=== PATIENT | male | born 1990 | race Caucasian/White ===

== ENCOUNTER 2025-04-12 12:49 | Outpatient (AMB) | payer BC, SELFPAY ==
--- NOTE | 2025-04-12 12:53 | MHC.PC.OV ---
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 Accompanied by: Self / Same As Patient Allergies No Known Allergies Allergy (Verified 04/12/25 12:54) Medication List - Last Reconciled 04/12/25 by Nicolette Mahan MD No Known Home Meds Tobacco use date assessed: 04/12/25 Dental Screening Dental Screen Date: 04/12/25 Did you have a dental visit in the last 12 months?: No Did you have a dental problem in the last 6 months where you did not have access to dental care?: Yes Was dental information given to patient?: Yes HPI HPI Comments History of Present Illness Details The patient is a 34 year old male with no known PMH presenting to [facility] primary care and for a general health check. He does not recall the last time he had a physical and was encouraged by his girlfriend to seek care. The patient has no known past medical history, no prior surgeries, and takes no medications. He has a family history of high cholesterol in his grandfather but is unaware of any history of high blood pressure or high cholesterol in his parents or siblings. He also notes his mother may have undiagnosed mental health issues. The patient reports feeling more depressed and anxious for the past few months, which he attributes to the stress of moving from [place] to [place] in November and work-related pressures. He has also experienced minor, brief chest cramps but denies any associated concerning features such as chest pain with exertion, or chest pressure. For approximately a year, he has had a skin breakout on the back of his neck at the hairline, which has not improved with the use of acne wash. He had facial and upper back acne as a teenager but reports it was not significant. [facility] Social History (Updated 04/12/25 @ 13:14 by Nicolette Mahan MD) Housing: House Alcohol intake: current Alcohol intake frequency: a few times a week Patient Tobacco Use Status: Never used Tobacco e-Cigarette/Vaping Use: Never Used service: No Current occupational status: employed Current occupation: [employer] Hearing needs: No Vision needs: Yes Questionnaire PHQ-9 Over the last 2 weeks, how often have you been bothered by any of the following problems? 1. Little interest or pleasure in doing things: not at all 2. Feeling down, depressed, or hopeless: several days 3. Trouble falling or staying asleep, or sleeping too much: not at all 4. Feeling tired or having little energy: not at all 5. Poor appetite or overeating: not at all 6. Feeling bad about yourself - or that you are a failure or have let yourself or your family down: not at all 7. Trouble concentrating on things, such as reading the newspaper or watching television: not at all 8. Moving or speaking so slowly that other people could have noticed. Or the opposite - being so fidgety or restless that you have been moving around a lot more than usual: not at all 9. Thoughts that you would be better off or of hurting yourself in some way: not at all Total score: 1 Depression Screening Interpretation: Negative (Related to adjustment. ) Depression Screening Done: Yes Source: Developed by Drs. Calos Teixeira, Shelby Butterfield, Bob Guy and colleagues, with an educational america from [employer]. Thrive Questionnaire Date Thrive assessed: 04/12/25 I am a: Patient What is your living situation today?: I have a steady place to live Within the past 12 months, did the food you bought not last and you didn't have the money to get more?: Never true Within the past 12 months, did you worry whether your food would run out before you got money to buy more?: Never true Do you have trouble paying for medicines?: No Do you have trouble getting transportation to medical appointments?: No Do you have trouble paying your heating and electricity bill?: No Do you have trouble taking care of your child, family member or friend?: No Do you have trouble with day-to-day activities such as bathing, preparing meals, shopping, managing finances, etc.?: No Are you currently unemployed and looking for a job?: No Are you interested in more education?: No Please select the resources that you would like help with: None Currently or been in a relationship where the following occur: No concerns reported THRIVE Score: 0 AUDIT C Alcohol Use Questionnaire (AUDIT-C) 1. How often do you have a drink containing alcohol?: 2-3 times a week 2. How many drinks containing alcohol do you have on a typical day when you are drinking?: 1 or 2 3. How often do you have six or more drinks on one occasion?: Never Total Score: 3 ANGELA-7 AMB Questionnaire ANGELA-7 Date ANGELA - 7 assessed: 04/12/25 Feeling nervous, anxious, or on edge: 1 = Several days Not being able to stop or control worryin = Several days Worrying too much about different things: 1 = Several days Trouble relaxin = Several days Being so restless that it is hard to sit still: 0 = Not at all Becoming easily annoyed or irritable: 1 = Several days Feeling afraid as if something awful might happen: 0 = Not at all Total ANGELA-7 score (0-4 normal; 5-9 mild; 10-14 moderate; 15-21 severe): 5 Source: Developed by Drs. Calos Teixeira, Shelby Butterfield, Bob Guy and colleagues, with an educational america from [employer]. Physical exam (Primary Care) Vital Signs: Last Vital Signs Temp 97.1 F 04/12/25 12:58 Pulse 71 04/12/25 12:58 Resp 18 04/12/25 12:58 BP 134/76 04/12/25 12:58 Pulse Ox 98 04/12/25 12:58 Oxygen Delivery Method Room Air 04/12/25 12:58 BMI result Body Mass Index 29.9 Tobacco/Smoking Status: Tobacco use Status Tobacco use date assessed 04/12/25 04/12/25 12:55 Patient Tobacco Use Status Never used Tobacco 04/12/25 13:14 e-Cigarette/Vaping Use Never Used 04/12/25 13:14 PHQ-9: PHQ-9 Score PHQ-9: Total score 1 04/12/25 13:17 Depression Screening Interpretation: Negative (Related to adjustment. ) Thrive Assessment: Date of Thrive Assessment Date Thrive assessed 04/12/25 04/12/25 12:55 Currently or been in a relationship where the following occur: No concerns reported Const Other: Pertinent findings are in BOLD GENERAL APPEARANCE NAD, activity normal for age, well developed/ well nourished, no cyanosis, pallor, or diaphoresis. EYES lids/conjunctiva normal. EARS/NOSE/THROAT Mucous membranes moist, nares normal, lips/teeth normal uvula midline without oral pharyngeal erythema, exudate or swelling TMs normal bilaterally. No lymphangitis/lymphedema. HEAD/NECK normocephalic atraumatic, no facial trauma, neck is supple. RESPIRATORY respiratory effort normal, speaks in full sentences, no tripod position, no accessory muscle use. Lungs clear to auscultation without rhonchi, wheezes, rales CARDIAC Regular rate and rhythm, no edema. ABDOMINAL Soft, ND/NT. No evidence of fluid wave. No pulsatile masses on exam, rebound tenderness, Moore sign or pain over Mcburney's point. MUSCLES/EXTREMITIES No abnormal range of motion, no swelling. SKIN Warm, pink and dry. Rash on posterior hairline. Papules. NEUROLOGICAL Speech is clear and appropriate. Normal level of consciousness. Gait and coordination are normal. 5/5 strength in all extremities. PSYCH Normal mood and affect. Judgement/competence is appropriate Office Procedures Flu Questionnaire Does the patient have a severe egg allergy?: No Does the patient have severe life threatening allergies?: No Does the patient have a fever or illness today?: No Has the patient ever had Guillain-Dundee Syndrome?: No Has the patient ever had any past reaction to a flu shot?: No Immunizations Fluarix [id number] (PF) 45 mcg (15 mcg x 3)/0.5 mL IM syringe Performing Provider: Nicolette Mahan MD [facility] Administered by: Grace Villalta LPN on 04/12/25 13:39 Dose Route Admin Location Dispensed Lot Number Expiration Date [facility] Corporate Legal Secretary 0.5 mL IM Left Deltoid 0.5 mL [id number] 10/23/25 [id number] [employer] [employer] VIS Given Date VIS Provided VIS Publication Date 04/12/25 Single Vaccine 24 Eligibility Eligibility Date Funding Source Not [facility] Eligible 04/12/25 Private Coding Level of Care Code New Pt Level 4 (82461) Diagnoses Healthcare maintenance Z00.00 Papules R23.8 Situational anxiety F41.8 Assessment & Plan Assessment & Plan (1) Healthcare maintenance: Code(s): Z00.00 - Encounter for general adult medical examination without abnormal findings Category: Medical Plan: CBC, CMP, Lipid panel, A1C, TSH w T4, vit D. Ordered. Shingles 2 doses when >50 yo. At 50. COVID: two doses. Completed. Pneumococcal: >50 yo. 18-49 with CKD, lung disease, weakened immune system, Heart disease, DM, cochlear implant. At 50. Flu vaccine: Today. Tdap: every 10 years. Will bring records. with next physical. Colonoscopy: 45-75. At 45. AAA: 65 -75. NI[address] CT lun - 80. NI. PSA: 50 -70 every two years. At 50. HIV: Ordered. HCV: Ordered. (2) Papules: Code(s): R23.8 - Other skin changes Category: Medical Plan: - The patient has had a non-itchy breakout on the back of his neck for about a year. - As the diagnosis is uncertain, a referral to a car and yard supervisor is recommended for further evaluation. - The patient was advised to check with his insurance and call the office to request a referral if needed. (3) Situational anxiety: Code(s): F41.8 - Other specified anxiety disorders Category: Medical Plan: - The patient's symptoms of increased anxiety and depression are attributed to recent stressors including a move and work pressures. - He was counseled to seek help if his symptoms worsen or become unmanageable. Plan I met with the patient, a 34-year-old male, for establishing primary care. We discussed his recent increase in anxiety and depressive symptoms, which we both agreed are likely related to recent life adjustments, and I advised him to contact us if these feelings worsen. I reviewed his brief, minor chest cramps and reassured him that they do not sound alarming but provided education on red flag symptoms. Regarding the skin rash on his neck, I explained that the diagnosis is unclear and recommended he see a car and yard supervisor, advising him on the referral process if required by his insurance. I discussed the plan for routine screening labs, including blood counts, metabolic panel, A1c, thyroid function, and screenings for HIV and Hepatitis C, which will be done fasting. We discussed health maintenance, including vaccinations; he agreed to receive the flu shot today, and we will confirm his tetanus status at the next visit. I also provided dietary counseling, emphasizing that reducing sugar and bread intake can significantly aid his weight loss goals. I informed him I would contact him if any lab results are abnormal; otherwise, we will have a follow-up appointment scheduled in one year. Orders: Orders Complete Blood Count no Diff Today Z00.00 - Encounter for general adult medical examination without abnormal findings HIV Ab/Ag Today Z00.00 - Encounter for general adult medical examination without abnormal findings Hepatitis C Antibody Reflex Today Z00.00 - Encounter for general adult medical examination without abnormal findings Hemoglobin A1c Today Z00.00 - Encounter for general adult medical examination without abnormal findings UA and rflx microscopic Today Z00.00 - Encounter for general adult medical examination without abnormal findings Influenza [id number] Immunization Today Z23 - Encounter for immunization Comprehensive Met. Panel Today Z00.00 - Encounter for general adult medical examination without abnormal findings TSH reflex Free T4 Today Z00.00 - Encounter for general adult medical examination without abnormal findings
[2025-04-12 12:58] VITALS: BP 134/76; PULSE 71; RESP 18; TEMP 36.2; O2SAT 98; BMI 29.9
== END 2025-04-12 13:37 | disposition home or self-care (01) ==
LOC: HO.HMCH 12:50
PROVIDERS: PCP Internal Medicine; Visit Provider Internal Medicine
DX: Z00.00 Encounter for general adult medical examination without abnormal findings (principal); R23.8 Other skin changes; F41.8 Other specified anxiety disorders; Z23 Encounter for immunization

== ENCOUNTER → 2025-04-12 12:49 | Outpatient (BNVA) | payer BC, SELFPAY | PROVIDERS: PCP Internal Medicine; Visit Provider Internal Medicine | DX: Z00.00 Encounter for general adult medical examination without abnormal findings (principal); R23.8 Other skin changes; F41.8 Other specified anxiety disorders; Z23 Encounter for immunization | CPT/HCPCS: 90471; 90656; 96127 ==